=== PATIENT | female | born 1955 | race Caucasian/White ===

== ENCOUNTER 2020-08-23 06:34 | Day surgery (SDC) | payer OTHER ==
[2020-08-15 16:27] LABS: BASOPHILS % (AUTO) 0.6 % (0.0-5.0); EOSINOPHILS % (AUTO) 2.6 % (0.0-8.0); HEMATOCRIT 44.6 % (36-48); LYMPHOCYTES % (AUTO) 24.4 % (21.0-51.0); MEAN CORPUSCULAR HEMOGLOBIN 29.8 pg (27.0-33.0); MEAN CORPUSCULAR HGB CONC 32.3 g/dL (32.0-36.0); MEAN CORPUSCULAR VOLUME 92.1 fL (79-99); NEUTROPHILS % (AUTO) 65.2 % (40.0-77.0); PLATELET COUNT (AUTO) 333 K/uL (130-400); RED BLOOD CELL COUNT(AUTO) 4.84 MIL/uL (4.00-5.50); RED CELL DISTRIBUTION WIDTH 13.2 % (11.0-15.5)
[2020-08-15 16:42] LABS: CREATININE 0.6 mg/dL (0.5-1.5); POTASSIUM 4.6 mmol/L (3.5-5.1)
[2020-08-22 14:35] VITALS: BP 139/93
[~2020-08-23] VITALS: Ht 160 cm; Wt 102.0 kg
[2020-08-23] VITALS (18 sets, daily range): BP systolic 110–167; BP diastolic 66–92
[~2020-08-23 06:34] MED LIST: DULO20 PO; FLUT1DIS4 IH; HYDR200T4 PO; IPRA4AER IH; LEVO100T12 PO; MVIT PO
[2020-08-23] MEDS ORDERED: SUCCINYLCHOLINE 200MG/10ML SYR ONE (07:36)
[2020-08-23] MEDS ORDERED: LIDOCAINE PF 2% 5ML ABBOJECT ONE (07:36)
[2020-08-23] MEDS ORDERED: PROPOFOL 10 MG/ML 20ML VIAL IV ONE (07:37)
[2020-08-23] MEDS ORDERED: MIDAZOLAM HCL 1 MG/ML 2ML VIAL ONE (07:37)
[2020-08-23] MEDS ORDERED: FENTANYL CITRATE PF 50 MCG/1 ML 2ML VIAL ONE (07:37)
[2020-08-23] MEDS ORDERED: ROCURONIUM 10MG/1ML SYR 10 MG/ML ML ONE (07:37)
[2020-08-23] MEDS ORDERED: DEXAMETHASONE SOD PHOSPHATE 10MG/ML 1ML VIAL ONE (07:40)
[2020-08-23] MEDS ORDERED: GLYCOPYRROLATE 1 MG/5 ML SYRINGE ONE (07:40)
[2020-08-23] MEDS ORDERED: ONDANSETRON HCL 4 MG/2 ML VIAL ONE ×2 (07:40→08:39)
[2020-08-23] MEDS ORDERED: NEOSTIGMINE 5MG/5ML SYR IV ONE (07:41)
[2020-08-23] MEDS ORDERED: BUPIVACAINE/PF 0.5% 30ML VIAL ONE (08:00)
[2020-08-23] MEDS ORDERED: LACTATED RINGERS 1000ML 1,000 ML IV ONE (08:06)
[2020-08-23] MEDS: CEFAZOLIN SODIUM 1 GM VIAL ONE ×2 (08:24→08:43)
[2020-08-23] MEDS ORDERED: TRANEXAMIC ACID 1000MG/10ML ONE (08:46)
[2020-08-23] MEDS ORDERED: MEPERIDINE-PF 25 MG/ML SYG ONE (09:46)
== END 2020-08-23 11:20 | disposition home or self-care (01) ==
LOC: DAH 06:34
PROVIDERS: ATTEND Orthopaedic Surgery
DX: S83.242A Other tear of medial meniscus, current injury, left knee, initial encounter (principal); S83.282A Other tear of lateral meniscus, current injury, left knee, initial encounter; S83.512A Sprain of anterior cruciate ligament of left knee, initial encounter; M25.462 Effusion, left knee; M65.862 Other synovitis and tenosynovitis, left lower leg; M94.262 Chondromalacia, left knee; M17.12 Unilateral primary osteoarthritis, left knee; J44.9 Chronic obstructive pulmonary disease, unspecified; K21.9 Gastro-esophageal reflux disease without esophagitis; Z87.891 Personal history of nicotine dependence; Z20.828 Contact with and (suspected) exposure to other viral communicable diseases; Z79.899 Other long term (current) drug therapy; X58.XXXA Exposure to other specified factors, initial encounter; Y93.89 Activity, other specified; Y92.89 Other specified places as the place of occurrence of the external cause; Y99.8 Other external cause status
CPT/HCPCS: 29880; 36415; 80048; 85025; 93005; A4215; A4221; A4222; A4223; A4606; A4649 ×3; A4663; A4930 ×2; A5120; A6223; C9803; J0330; J0690; J1100; J2001; J2175; J2250; J2405 ×2; J2704; J2710; J3010; J3490 ×3; J7120 ×2; U0003